=== PATIENT | male | born 1980 | race Caucasian/White ===

== ENCOUNTER 2020-11-17 23:19 | Emergency (ER) | payer OTHER ==
[~2020-11-17] VITALS: Ht 203.2 cm; Wt 106.6 kg
[~2020-11-17 23:19] MED LIST: AZITHROMYCIN 2250 MG PO; HYDROCODON-ACE1 EAC7 PO; TAMSULOSIN HCL0.4 MG PO
[2020-11-18 00:04] LABS: URINE BILIRUBIN NEGATIVE (Negative); URINE BLOOD TRACE (Negative); URINE CLARITY CLOUDY; URINE COLOR YELLOW; URINE GLUCOSE-RANDOM NEGATIVE (Negative); URINE KETONES 1+ (Negative); URINE LEUKOCYTES-REFLEX NEGATIVE (Negative); URINE NITRITE-REFLEX NEGATIVE (Negative); URINE PROTEIN NEGATIVE (Negative); URINE UROBILINOGEN 0.2 E.U./dl (0.2-1.0)
[2020-11-18 00:20] LABS: ABSOLUTE LYMPHOCYTES 1.6 thou/uL (0.8-5.3); ABSOLUTE MONOCYTES 0.9 thou/uL (0.0-1.2); ABSOLUTE NEUTROPHILS 7.4 thou/uL (1.6-8.1); BASOPHILS 0.2 %; EOSINOPHILS 0.5 %; HEMATOCRIT 45.7 % (42.0-52.0); HEMOGLOBIN 15.5 gm/dL (14.0-18.0); LYMPHOCYTES 15.7 %; MCH 30.5 pg (26.0-34.0); MCV 89.7 fL (80.0-100.0); MONOCYTES 8.9 %; MPV 9.5 fl. (7.2-11.1); NUCLEATED RBCS 0 /100WBC; PLATELET COUNT* 191 thou/uL (150-400); POLYS 74.7 %; RBC 5.09 mil/uL (4.50-6.00); RDW-CV 12.8 % (10.5-14.5); WBC 9.9 thou/uL (4.0-11.0)
[2020-11-18 00:25] LABS: BACTERIA-REFLEX 1-9 Few /HPF (None Seen); CASTS None Seen /LPF (None Seen); SQUAMOUS NONE SEEN /LPF (0-3); URINE RBC 0-2 Rare /HPF (0-2); URINE WBC-REFLEX 6-15 Few /HPF (0-5)
[2020-11-18 00:26] LABS: AMORPHOUS PHOSPHATES Many /LPF (None Seen)
[2020-11-18 00:33] LABS: ALBUMIN 4.3 g/dL (3.4-5.0); CREATININE 0.8 mg/dL (0.6-1.3); POTASSIUM 3.2 mmol/L (3.5-5.1); TOTAL BILIRUBIN 0.6 mg/dL (<0.1-1.0); TOTAL PROTEIN 6.7 g/dL (6.4-8.2)
[2020-11-18] MEDS ORDERED: FLOMAX0.4 MG PO (01:57)
[2020-11-18] MEDS ORDERED: TORADOL 10 MG T10 MG PO (01:57)
[2020-11-18] MEDS ORDERED: ZOFRAN ODT4 MG PO (01:57)
[2020-11-18 02:30] VITALS: BP 123/73
== END 2020-11-18 02:30 | disposition home or self-care (01) ==
LOC: M.ERS 23:19
PROVIDERS: Personal Emergency Response Attendant
DX: N20.1 Calculus of ureter (principal); N23 Unspecified renal colic; Z87.442 Personal history of urinary calculi